=== PATIENT | female | born 1950 | race Caucasian/White ===

== ENCOUNTER 2018-05-19 14:24 | Emergency (ER) | payer MEDICARE, BC ==
[2018-05-19 14:55] VITALS: BP 156/76
[2018-05-19] MEDS ORDERED: Triamcinolone Acetonide 40 MG/ML 1 ML MDV INJECT PRN (16:18)
[2018-05-19] MEDS ORDERED: Bupivacaine 0.5% 30 ML SDV INJECT ONE (16:23)
--- NOTE | 2018-05-19 16:56 | EDM.PDOC ---
ED HPI GENERAL MEDICAL PROBLEM - General Chief Complaint: Lower Extremity Injury/Pain Stated Complaint: RIGHT HIP PAIN Time Seen by Provider: 05/19/18 15:00 Source of Information: Reports: Patient, Family History Limitations: Reports: No Limitations - History of Present Illness INITIAL COMMENTS - FREE TEXT/NARRATIVE: 67-year-old female with right hip pain worsening over the past several days now radiating into the right posterior buttock and into the right lateral thigh. No injury, sudden movements, recent illnesses, or other source of pain. She is having difficulty walking, standing, sleeping or even rolling over. She has not had this problem in the past. 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: Musculoskeletal History: Reports: Arthritis, Fracture Other Musculoskeletal History: fx ankle fibula - Infectious Disease History Infectious Disease History: Reports: Chicken Pox, Measles, Mumps - Past Surgical History GI Surgical History: Reports: Cholecystectomy Social & Family History - Tobacco Use Smoking Status *Q: Never Smoker Second Hand Smoke Exposure: No - Caffeine Use Caffeine Use: Reports: Coffee - Alcohol Use Days Per Week of Alcohol Use: 0 - Recreational Drug Use Recreational Drug Use: No Review of Systems - Review of Systems Review Of Systems: See Below Constitutional: Denies: Fever Respiratory: Reports: No Symptoms Cardiovascular: Reports: No Symptoms GI/Abdominal: Reports: No Symptoms Skin: Reports: No Symptoms. Denies: Rash (No rash over the sore area) Neurological: Denies: Paresthesia Psychiatric: Reports: No Symptoms ED EXAM, GENERAL - Physical Exam Exam: See Below Exam Limited By: No Limitations General Appearance: Alert, No Apparent Distress, Anxious, Other (Patient is uncomfortable but not distressed) Head: Atraumatic Respiratory/Chest: No Respiratory Distress Extremities: Other (Buttock and lateral hip were very painful to even passive range of motion. On palpation she was exquisitely sore over the greater trochanteric area.) Neurological: Alert, Oriented Course - Vital Signs Last Recorded V/S: Last Vital Signs Temp 97.9 F 05/19/18 15:29 Pulse 86 05/19/18 15:29 Resp 16 05/19/18 15:29 BP 156/76 H 05/19/18 15:29 Pulse Ox 95 05/19/18 15:29 - Orders/Labs/Meds Meds: Medications Discontinued Medications Generic Name Dose Route Start Last Admin Trade Name Prashanth PRN Reason Stop Dose Admin Bupivacaine HCl 10 ml 05/19/18 16:23 05/19/18 16:47 Marcaine 0.5% INJECT 05/19/18 16:24 10 ml ONETIME ONE Administration Triamcinolone Acetonide 40 mg 05/19/18 16:18 05/19/18 16:47 Kenalog-40 INJECT 40 mg ASDIRECTED PRN Administration Pain - Re-Assessments/Exams Free Text/Narrative Re-Assessment/Exam: 05/19/18 17:30 Under sterile conditions, 40 mg of Kenalog along with 10 mL of 0.5% Marcaine were infiltrated into the bursa and on a fan distribution around the greater trochanter. This was massaged in with a 4 x 4, and pain was markedly improved. She was able to stand with minimal discomfort but still had some pain with active extension and flexion of the hip. She was also placed on 50 mg of prednisone for the next 3-6 days to be taken with her first meal of the day. Recheck early next week if not improving satisfactorily. Departure - Departure Time of Disposition: 17:06 Disposition: Home, Self-Care 01 Condition: Good Clinical Impression: Trochanteric bursitis of right hip - Discharge Information Instructions: Hip Bursitis Referrals: PCP,None [Primary Care Provider] - Forms: ED Department Discharge Care Plan Goals: Take 5 pills of prednisone with your first meal of the day for the next 3-6 days. Tylenol and ibuprofen will help as well, increase your activity as tolerated. Consider rechecking next week if not improving satisfactorily.
== END 2018-05-19 17:06 | disposition home or self-care (01) ==
LOC: JP.ED 14:24
DX: M70.61 Trochanteric bursitis, right hip (principal); I10 Essential (primary) hypertension; Z79.899 Other long term (current) drug therapy
CPT/HCPCS: 20610; 99283; J3301

== ENCOUNTER 2018-07-14 06:23 | Inpatient (IN) | payer MEDICARE, BC ==
[2018-07-14] MEDS ORDERED: Morphine 4 MG/ML Syringe IVPUSH PRN (06:54)
[2018-07-14] MEDS ORDERED: Nitroglycerin 0.4 MG Tab.SL SL PRN (06:54)
[2018-07-14] MEDS ORDERED: Sodium Chloride 0.9% 10 ML Syringe FLUSH PRN ×2 (06:54→10:11)
--- NOTE | 2018-07-14 07:00 | EDM.PDOC ---
<OfficerSudarshan - Last Filed: 07/14/18 06:56> ED HPI GENERAL MEDICAL PROBLEM - General Chief Complaint: General Stated Complaint: NEO HAD HIP REPLACEMENT LAST WEEK Time Seen by Provider: 07/14/18 06:49 Source of Information: Reports: Patient, Family, RN Notes Reviewed History Limitations: Reports: No Limitations - History of Present Illness INITIAL COMMENTS - FREE TEXT/NARRATIVE: 67-year-old female presents to the emergency department today complaint of chest pain she recently underwent right hip replacement at was discharged last week has been doing well only taking tramadol and Tylenol for pain control. Awoke this morning with nausea and hip pain was diaphoretic did feel short of breath EMS services were called was given Zofran IM in route upon arrival at the emergency department developed chest pain with numbness and tingling down the left arm was given 4 [address]. At this time she continues to complain of chest pain, shortness of breath, nausea Right Hip Pain Score (Numeric/FACES): 8 Abdominal Pain Score (Numeric/FACES): 6 Chest Pain Score (Numeric/FACES): 4 - Related Data Allergies Allergy/AdvReac Type Severity Reaction Status Date / Time No Known Allergies Allergy Verified 07/14/18 06:37 Home Meds: Home Meds Lisinopril/Hydrochlorothiazide [Lisinopril-Hctz 10-12.5 mg Tab] 1 tab PO DAILY 06/07/16 [History] Acetaminophen [Tylenol Extra Strength] 500 mg PO Q4HR PRN 07/14/18 [History] Apixaban [Eliquis] 2.5 mg PO BID 07/14/18 [History] traMADol HCl [Tramadol HCl] 50 mg PO Q6H PRN 07/14/18 [History] Past Medical History HEENT History: Reports: Impaired Vision 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: Musculoskeletal History: Reports: Arthritis, Fracture Other Musculoskeletal History: fx ankle fibula Hematologic History: Reports: Anticoagulation Therapy - Infectious Disease History Infectious Disease History: Reports: Chicken Pox, Measles, Mumps - Past Surgical History GI Surgical History: Reports: Cholecystectomy Female Surgical History: Reports: Tubal Ligation Musculoskeletal Surgical History: Reports: Hip Replacement Social & Family History - Tobacco Use Smoking Status *Q: Never Smoker - Caffeine Use Caffeine Use: Reports: Coffee - Recreational Drug Use Recreational Drug Use: No ED ROS GENERAL - Review of Systems Review Of Systems: See Below Constitutional: Reports: No Symptoms HEENT: Reports: No Symptoms Respiratory: Reports: Shortness of Breath Cardiovascular: Reports: Chest Pain GI/Abdominal: Reports: Nausea. Denies: Vomiting : Reports: No Symptoms Musculoskeletal: Reports: Arm Pain (Left arm) Skin: Reports: No Symptoms Neurological: Reports: Numbness (Left arm) ED EXAM, GENERAL - Physical Exam Exam: See Below Exam Limited By: No Limitations General Appearance: Alert, Mild Distress Head: Atraumatic, Normocephalic Neck: Normal Inspection, Supple, Non-Tender, Full Range of Motion Respiratory/Chest: No Respiratory Distress, Lungs Clear, Normal Breath Sounds, No Accessory Muscle Use, Chest Non-Tender Cardiovascular: Regular Rate, Rhythm, No Murmur GI/Abdominal: Soft, Non-Tender Extremities: Non-Tender, No Pedal Edema Neurological: Alert, Oriented Course - Vital Signs Last Recorded V/S: Last Vital Signs Temp 36.4 C 07/14/18 06:40 Pulse 63 07/14/18 06:40 Resp 18 07/14/18 06:40 BP 156/57 H 07/14/18 06:40 Pulse Ox 99 07/14/18 06:40 - Orders/Labs/Meds Orders: Active Orders 24 hr Category Date Time Status Cardiac Monitoring [RC] .As Directed Care 07/14/18 06:54 Active EKG Documentation Completion [RC] ASDIRECTED Care 07/14/18 06:55 Active Peripheral IV Care [RC] . DIRECTED Care 07/14/18 06:55 Active Morphine Med 07/14/18 06:54 Active 4 mg IVPUSH Q10M PRN Nitroglycerin [Nitrostat] Med 07/14/18 06:54 Active 0.4 mg SL Q5M PRN Sodium Chloride 0.9% [Saline Flush] Med 07/14/18 06:54 Active 10 ml FLUSH ASDIRECTED PRN Peripheral IV Insertion Adult [OM.PC] Stat Oth 07/14/18 06:54 Ordered Saline Lock Insert [OM.PC] Stat Oth 07/14/18 06:54 Ordered EKG 12 Lead [EK] Stat Ther 07/14/18 06:55 Ordered Medication Orders Morphine Sulfate (Morphine) 4 mg IVPUSH Q10M PRN PRN Reason: Chest Pain Stop: 07/15/18 06:55 Last Admin: 07/14/18 07:02 Dose: 4 mg Nitroglycerin (Nitrostat) 0.4 mg SL Q5M PRN PRN Reason: Chest Pain Stop: 07/15/18 06:55 Sodium Chloride (Saline Flush) 10 ml FLUSH ASDIRECTED PRN PRN Reason: Keep Vein Open Last Admin: 07/14/18 07:13 Dose: 10 ml Labs: Laboratory Tests 07/14/18 07/14/18 07/14/18 Range/Units 07:07 07:07 07:07 WBC 6.6 (4.5-11.0) K/uL RBC 3.63 (3.30-5.50) M/uL Hgb 11.9 L (12.0-15.0) g/dL Hct 34.2 L (36.0-48.0) % MCV 94 (80-98) fL MCH 33 H (27-31) pg MCHC 35 (32-36) % Plt Count 272 (150-400) K/uL Neut % (Auto) 76 H (36-66) % Lymph % (Auto) 14 L (24-44) % Swift % (Auto) 10 H (2-6) % Eos % (Auto) 1 L (2-4) % Baso % (Auto) 1 (0-1) % PT 10.4 (9.5-12.0) sec INR 0.94 (0.80-1.20) D-Dimer, Quantitative (0.0-400.0) ng/mL Sodium 133 L (140-148) mmol/L Potassium 3.2 L (3.6-5.2) mmol/L Chloride 95 L (100-108) mmol/L Carbon Dioxide 30 (21-32) mmol/L Anion Gap 11.2 (5.0-14.0) mmol/L BUN 8 (7-18) mg/dL Creatinine 0.8 (0.6-1.0) mg/dL Est Cr Clr Drug Dosing 67.27 mL/min Estimated GFR (MDRD) > 60 (>60) Glucose 126 H (74-106) mg/dL Calcium 8.8 (8.5-10.1) mg/dL Total Bilirubin 0.8 (0.2-1.0) mg/dL AST 38 H (15-37) U/L ALT 29 (12-78) U/L Alkaline Phosphatase 50 (46-116) U/L CK-MB (CK-2) 2.1 (0-3.6) mg/mL Troponin I < 0.017 (0.000-0.056) ng/mL C-Reactive Protein (0.0-0.3) mg/dL Total Protein 6.2 L (6.4-8.2) g/dL Albumin 2.9 L (3.4-5.0) g/dL Globulin 3.3 (2.3-3.5) g/dL Albumin/Globulin Ratio 0.9 L (1.2-2.2) 07/14/18 07/14/18 Range/Units 07:12 07:18 WBC (4.5-11.0) K/uL RBC (3.30-5.50) M/uL Hgb (12.0-15.0) g/dL Hct (36.0-48.0) % MCV (80-98) fL MCH (27-31) pg MCHC (32-36) % Plt Count (150-400) K/uL Neut % (Auto) (36-66) % Lymph % (Auto) (24-44) % Swift % (Auto) (2-6) % Eos % (Auto) (2-4) % Baso % (Auto) (0-1) % PT (9.5-12.0) sec INR (0.80-1.20) D-Dimer, Quantitative 1820 H (0.0-400.0) ng/mL Sodium (140-148) mmol/L Potassium (3.6-5.2) mmol/L Chloride (100-108) mmol/L Carbon Dioxide (21-32) mmol/L Anion Gap (5.0-14.0) mmol/L BUN (7-18) mg/dL Creatinine (0.6-1.0) mg/dL Est Cr Clr Drug Dosing mL/min Estimated GFR (MDRD) (>60) Glucose (74-106) mg/dL Calcium (8.5-10.1) mg/dL Total Bilirubin (0.2-1.0) mg/dL AST (15-37) U/L ALT (12-78) U/L Alkaline Phosphatase (46-116) U/L CK-MB (CK-2) (0-3.6) mg/mL Troponin I (0.000-0.056) ng/mL C-Reactive Protein 7.85 H (0.0-0.3) mg/dL Total Protein (6.4-8.2) g/dL Albumin (3.4-5.0) g/dL Globulin (2.3-3.5) g/dL Albumin/Globulin Ratio (1.2-2.2) Meds: Medications Generic Name Dose Route Start Last Admin Trade Name Freq PRN Reason Stop Dose Admin Morphine Sulfate 4 mg 07/14/18 06:54 07/14/18 07:02 Morphine IVPUSH 07/15/18 06:55 4 mg Q10M PRN Administration Chest Pain Nitroglycerin 0.4 mg 07/14/18 06:54 Nitrostat SL 07/15/18 06:55 Q5M PRN Chest Pain Sodium Chloride 10 ml 07/14/18 06:54 07/14/18 07:13 Saline Flush FLUSH 10 ml ASDIRECTED PRN Administration Keep Vein Open Discontinued Medications Generic Name Dose Route Start Last Admin Trade Name Freq PRN Reason Stop Dose Admin Ondansetron HCl 4 mg 07/14/18 07:11 07/14/18 07:12 Zofran IVPUSH 07/14/18 07:12 4 mg ONETIME ONE Administration Ondansetron HCl Confirm 07/14/18 07:11 07/14/18 07:19 Zofran Administered 07/14/18 07:12 Not Given Dose 4 mg .ROUTE .STK-MED ONE Potassium Chloride 40 meq 07/14/18 07:58 07/14/18 08:14 Potassium Chloride PO 07/14/18 07:59 40 meq ONETIME ONE Administration Departure - Departure Disposition: Admitted As Inpatient 67 Clinical Impression: Cellulitis of hip, right, Hypokalemia - Discharge Information Referrals: Isaura Boone PA-C [Primary Care Provider] - Forms: ED Department Discharge <Roland Zuñiga - Last Filed: 07/14/18 08:52> ED HPI GENERAL MEDICAL PROBLEM - History of Present Illness INITIAL COMMENTS - FREE TEXT/NARRATIVE: Is on Eliquis since her surgery. Missed last night's dose. Onset: Today Onset Date: 07/14/18 Onset Time: 06:00 Duration: Minutes: Location: Reports: Chest, Lower Extremity, Right Quality: Reports: Pressure Severity: Moderate Improves with: Reports: None Worsens with: Reports: Other (unknown) Context: Reports: Other (Recent hip replacement) Associated Symptoms: Reports: Chest Pain (L sided), Nausea/Vomiting (no vomiting ), Shortness of Breath. 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 No: CVA Tenderness (R), CVA Tenderness (L) Extremities: Increased Warmth, Redness (R hip area, surgical wound present from recent hip replacement.) Neurological: CN II-XII Intact, Normal Cognition, No Motor/Sensory Deficits Psychiatric: Normal Affect, Normal Mood Skin Exam: Warm, Dry, Intact, No Rash, Erythema (R hip area with increased warmth.), Increased Warmth (R hip area), Wound/Incision (surgical wound) Lymphatic: No Adenopathy EKG INTERPRETATION EKG Date: 07/14/18 Time: 06:25 Rhythm: NSR Rate (Beats/Min): 62 [place]: Normal P-Wave: Present QRS: Normal ST-T: Normal QT: Normal Comparison: NA - No Prior EKG Course - Vital Signs Text/Narrative:: Dr. Ambriz notified @ [facility] - Orders/Labs/Meds Labs: Laboratory Tests 07/14/18 07/14/18 07/14/18 Range/Units 07:07 07:07 07:07 WBC 6.6 (4.5-11.0) K/uL RBC 3.63 (3.30-5.50) M/uL Hgb 11.9 L (12.0-15.0) g/dL Hct 34.2 L (36.0-48.0) % MCV 94 (80-98) fL MCH 33 H (27-31) pg MCHC 35 (32-36) % Plt Count 272 (150-400) K/uL Neut % (Auto) 76 H (36-66) % Lymph % (Auto) 14 L (24-44) % Swift % (Auto) 10 H (2-6) % Eos % (Auto) 1 L (2-4) % Baso % (Auto) 1 (0-1) % PT 10.4 (9.5-12.0) sec INR 0.94 (0.80-1.20) D-Dimer, Quantitative (0.0-400.0) ng/mL Sodium 133 L (140-148) mmol/L Potassium 3.2 L (3.6-5.2) mmol/L Chloride 95 L (100-108) mmol/L Carbon Dioxide 30 (21-32) mmol/L Anion Gap 11.2 (5.0-14.0) mmol/L BUN 8 (7-18) mg/dL Creatinine 0.8 (0.6-1.0) mg/dL Est Cr Clr Drug Dosing 67.27 mL/min Estimated GFR (MDRD) > 60 (>60) Glucose 126 H (74-106) mg/dL Calcium 8.8 (8.5-10.1) mg/dL Total Bilirubin 0.8 (0.2-1.0) mg/dL AST 38 H (15-37) U/L ALT 29 (12-78) U/L Alkaline Phosphatase 50 (46-116) U/L CK-MB (CK-2) 2.1 (0-3.6) mg/mL Troponin I < 0.017 (0.000-0.056) ng/mL C-Reactive Protein (0.0-0.3) mg/dL Total Protein 6.2 L (6.4-8.2) g/dL Albumin 2.9 L (3.4-5.0) g/dL Globulin 3.3 (2.3-3.5) g/dL Albumin/Globulin Ratio 0.9 L (1.2-2.2) 07/14/18 07/14/18 Range/Units 07:12 07:18 WBC (4.5-11.0) K/uL RBC (3.30-5.50) M/uL Hgb (12.0-15.0) g/dL Hct (36.0-48.0) % MCV (80-98) fL MCH (27-31) pg MCHC (32-36) % Plt Count (150-400) K/uL Neut % (Auto) (36-66) % Lymph % (Auto) (24-44) % Swift % (Auto) (2-6) % Eos % (Auto) (2-4) % Baso % (Auto) (0-1) % PT (9.5-12.0) sec INR (0.80-1.20) D-Dimer, Quantitative 1820 H (0.0-400.0) ng/mL Sodium (140-148) mmol/L Potassium (3.6-5.2) mmol/L Chloride (100-108) mmol/L Carbon Dioxide (21-32) mmol/L Anion Gap (5.0-14.0) mmol/L BUN (7-18) mg/dL Creatinine (0.6-1.0) mg/dL Est Cr Clr Drug Dosing mL/min Estimated GFR (MDRD) (>60) Glucose (74-106) mg/dL Calcium (8.5-10.1) mg/dL Total Bilirubin (0.2-1.0) mg/dL AST (15-37) U/L ALT (12-78) U/L Alkaline Phosphatase (46-116) U/L CK-MB (CK-2) (0-3.6) mg/mL Troponin I (0.000-0.056) ng/mL C-Reactive Protein 7.85 H (0.0-0.3) mg/dL Total Protein (6.4-8.2) g/dL Albumin (3.4-5.0) g/dL Globulin (2.3-3.5) g/dL Albumin/Globulin Ratio (1.2-2.2) - Radiology Interpretation Free Text/Narrative:: CXR-negative Abd flat-stool ascending colon, small stool descending colon. Departure - Departure Time of Disposition: 09:00 Condition: Fair - Discharge Information *PRESCRIPTION DRUG MONITORING PROGRAM REVIEWED*: Not Applicable *COPY OF PRESCRIPTION DRUG MONITORING REPORT IN PATIENT SHANE: Not Applicable
[2018-07-14] MEDS ORDERED: Ondansetron 4 MG/2 ML SDV IVPUSH ONE (07:11)
[2018-07-14] MEDS ORDERED: Ondansetron 4 MG/2 ML SDV ONE (07:11)
[2018-07-14] MEDS ORDERED: Potassium Chloride 10 MEQ Cap.ER PO ONE (07:58)
--- NOTE | 2018-07-14 08:46 | CR ---
CHEST: Portable CLINICAL HISTORY:Abdominal pain COMPARISON:None FINDINGS: Right size and pulmonary vascularity are normal. Lung carreno are clear. No infiltrate effu stefanie or pneumothorax seen. There is some scarring in the left upper lobe IMPRESSION: No acute cardiopulmonary process
--- NOTE | 2018-07-14 08:47 | CR ---
Abdomen 1V Flat CLINICAL HISTORY: Abdominal pain FINDINGS: The bowel gas pattern is nonobstructive. No abnormal masses are noted. There are surgical c lips in the right upper quadrant. IMPRESSION: Nonacute intestinal gas pattern
[2018-07-14] MEDS ORDERED: Metoclopramide 10 MG/2 ML SDV IVPUSH ONE (09:07)
[2018-07-14] MEDS ORDERED: Lactated Ringers 1,000 ML IV SCH (09:45)
[2018-07-14] MEDS: Vancomycin 1.3 GM in Sodium Chloride 0.9% 250 ML IV SCH ×2 (09:56→21:22)
[2018-07-14] MEDS ORDERED: Vancomycin 1 GM SDV IV SCH (10:00)
[2018-07-14] MEDS ORDERED: Morphine 2 MG/ML Syringe IVPUSH PRN (10:11)
[2018-07-14] MEDS ORDERED: Magnesium Hydroxide 400 MG/5 ML Susp 30 ML Cup PO PRN (10:11)
[2018-07-14] MEDS ORDERED: Polyethylene Glycol 3350 Powder 17 GM Packet PO PRN (10:11)
[2018-07-14] MEDS ORDERED: traMADol 50 MG Tab PO PRN (10:11)
[2018-07-14] MEDS ORDERED: Albuterol 0.083% 2.5 MG/3 ML Neb Soln NEB PRN (10:11)
--- NOTE | 2018-07-14 10:13 | PCM.HP ---
H&P History of Present Illness - General Date of Service: 07/14/18 Admit Problem/Dx: Admission Diagnosis/Problem Admission Diagnosis/Problem Cellulitis Source of Information: Patient, Family, Provider, RN Notes Reviewed History Limitations: Reports: No Limitations - History of Present Illness Initial Comments - Free Text/Narative: Ms. Huggins is a 67-year-old woman who is admitted through the emergency department with new onset of weakness and nausea, secondary to cellulitis of the right hip and thigh. She is status post right total hip arthroplasty done on July 09. She was discharged home the following day and did well until early this morning, when she noted development of erythema surrounding the surgical wound associated with significant weakness and nausea. She came into the emergency department for further evaluation, white blood cell count is within normal range, CRP is elevated, and there is appearance of significant cellulitis involving the right thigh and lateral hip. She was seen and evaluated in the emergency department by Dr. Kenny Cui for orthopedic consult, he did not feel that the wound was infected or that there was evidence of a deeper seeded infection. He is recommended hospitalization for IV antibiotic therapy. To this point there is no evidence of associated sepsis. Right Hip Pain Score (Numeric/FACES): 8 Abdominal Pain Score (Numeric/FACES): 6 Chest Pain Score (Numeric/FACES): 4 - Related Data Allergies/Adverse Reactions: Allergies Allergy/AdvReac Type Severity Reaction Status Date / Time No Known Allergies Allergy Verified 07/14/18 06:37 Home Medications: Home Meds Lisinopril/Hydrochlorothiazide [Lisinopril-Hctz 10-12.5 mg Tab] 1 tab PO DAILY 06/07/16 [History] Acetaminophen [Tylenol Extra Strength] 500 mg PO Q4HR PRN 07/14/18 [History] Apixaban [Eliquis] 2.5 mg PO BID 07/14/18 [History] traMADol HCl [Tramadol HCl] 50 mg PO Q6H PRN 07/14/18 [History] Past Medical History HEENT History: Reports: Impaired Vision Cardiovascular History: Reports: Hypertension [employer] History: Reports: Musculoskeletal History: Reports: Arthritis, Fracture Other Musculoskeletal History: fx ankle fibula Hematologic History: Reports: Anticoagulation Therapy - Infectious Disease History Infectious Disease History: Reports: Chicken Pox, Measles, Mumps - Past Surgical History GI Surgical History: Reports: Cholecystectomy Female Surgical History: Reports: Tubal Ligation Musculoskeletal Surgical History: Reports: Hip Replacement Social & Family History - Tobacco Use Smoking Status *Q: Never Smoker - Caffeine Use Caffeine Use: Reports: Coffee - Recreational Drug Use Recreational Drug Use: No H&P Review of Systems - Review of Systems: Review Of Systems: See Below General: Reports: Chills, Weakness, Diaphoresis, Decreased Appetite HEENT: Reports: No Symptoms Pulmonary: Reports: No Symptoms Cardiovascular: Reports: No Symptoms Gastrointestinal: Reports: Anorexia, Nausea. Denies: Abdominal Pain, Black Stool, Bloody Stool, Diarrhea, Difficulty Swallowing, Distension, Vomiting Genitourinary: Reports: No Symptoms Musculoskeletal: Reports: No Symptoms Skin: Reports: Erythema (With tenderness right lateral hip and thigh) Psychiatric: Reports: No Symptoms Neurological: Reports: No Symptoms Hematologic/Lymphatic: Reports: No Symptoms Immunologic: Reports: No Symptoms Exam - Exam Exam: See Below - Vital Signs Vital Signs: Last Vital Signs Temp 97.6 F 07/14/18 06:40 Pulse 63 07/14/18 06:40 Resp 18 07/14/18 06:40 BP 156/57 H 07/14/18 06:40 Pulse Ox 99 07/14/18 06:40 Weight: 190 lb - Exam Quality Assessment: DVT Prophylaxis General: Alert, Oriented, Cooperative, Moderate Distress HEENT: Conjunctiva Clear, Hearing Intact, Mucosa Moist & [place], Normal Nasal Septum, Posterior Pharynx Clear, Pupils Equal Neck: Supple, Trachea Midline, +2 Carotid Pulse wo Bruit Lungs: Clear to Auscultation, Normal Respiratory Effort Cardiovascular: Regular Rate, Regular Rhythm, Normal S1, Normal S2. No: Systolic Murmur, Diastolic Murmur GI/Abdominal Exam: Soft, Non-Tender, No Organomegaly, No Distention Back Exam: Normal Inspection, Full Range of Motion Extremities: Non-Tender, No Pedal Edema Skin: Other (Erythema with tenderness to palpation right lateral hip and thigh, surgical wound is intact with no evidence of drainage) Neurological: Cranial Nerves Intact, Strength Equal Bilateral, Normal Speech, Normal Tone, Sensation Intact. No: Focal Deficit Neuro Extensive - Mental Status: Alert, Oriented x3, Normal Mood/Affect, Normal Cognition, Memory Intact - Patient Data Lab Results Last 24 hrs: Laboratory Results - last 24 hr 07/14/18 07/14/18 07/14/18 Range/Units 07:07 07:07 07:07 WBC 6.6 (4.5-11.0) K/uL RBC 3.63 (3.30-5.50) M/uL Hgb 11.9 L (12.0-15.0) g/dL Hct 34.2 L (36.0-48.0) % MCV 94 (80-98) fL MCH 33 H (27-31) pg MCHC 35 (32-36) % Plt Count 272 (150-400) K/uL Neut % (Auto) 76 H (36-66) % Lymph % (Auto) 14 L (24-44) % [place] % (Auto) 10 H (2-6) % Eos % (Auto) 1 L (2-4) % Baso % (Auto) 1 (0-1) % PT 10.4 (9.5-12.0) sec INR 0.94 (0.80-1.20) D-Dimer, Quantitative (0.0-400.0) ng/mL Sodium 133 L (140-148) mmol/L Potassium 3.2 L (3.6-5.2) mmol/L Chloride 95 L (100-108) mmol/L Carbon Dioxide 30 (21-32) mmol/L Anion Gap 11.2 (5.0-14.0) mmol/L BUN 8 (7-18) mg/dL Creatinine 0.8 (0.6-1.0) mg/dL Est Cr Clr Drug Dosing 67.27 mL/min Estimated GFR (MDRD) > 60 (>60) Glucose 126 H (74-106) mg/dL Lactic Acid (0.4-2.0) mmol/L Calcium 8.8 (8.5-10.1) mg/dL Total Bilirubin 0.8 (0.2-1.0) mg/dL AST 38 H (15-37) U/L ALT 29 (12-78) U/L Alkaline Phosphatase 50 (46-116) U/L CK-MB (CK-2) 2.1 (0-3.6) mg/mL Troponin I < 0.017 (0.000-0.056) ng/mL C-Reactive Protein (0.0-0.3) mg/dL Total Protein 6.2 L (6.4-8.2) g/dL Albumin 2.9 L (3.4-5.0) g/dL Globulin 3.3 (2.3-3.5) g/dL Albumin/Globulin Ratio 0.9 L (1.2-2.2) 07/14/18 07/14/18 07/14/18 Range/Units 07:12 07:18 09:38 WBC (4.5-11.0) K/uL RBC (3.30-5.50) M/uL Hgb (12.0-15.0) g/dL Hct (36.0-48.0) % MCV (80-98) fL MCH (27-31) pg MCHC (32-36) % Plt Count (150-400) K/uL Neut % (Auto) (36-66) % Lymph % (Auto) (24-44) % [place] % (Auto) (2-6) % Eos % (Auto) (2-4) % Baso % (Auto) (0-1) % PT (9.5-12.0) sec INR (0.80-1.20) D-Dimer, Quantitative 1820 H (0.0-400.0) ng/mL Sodium (140-148) mmol/L Potassium (3.6-5.2) mmol/L Chloride (100-108) mmol/L Carbon Dioxide (21-32) mmol/L Anion Gap (5.0-14.0) mmol/L BUN (7-18) mg/dL Creatinine (0.6-1.0) mg/dL Est Cr Clr Drug Dosing mL/min Estimated GFR (MDRD) (>60) Glucose (74-106) mg/dL Lactic Acid 1.9 (0.4-2.0) mmol/L Calcium (8.5-10.1) mg/dL Total Bilirubin (0.2-1.0) mg/dL AST (15-37) U/L ALT (12-78) U/L Alkaline Phosphatase (46-116) U/L CK-MB (CK-2) (0-3.6) mg/mL Troponin I (0.000-0.056) ng/mL C-Reactive Protein 7.85 H (0.0-0.3) mg/dL Total Protein (6.4-8.2) g/dL Albumin (3.4-5.0) g/dL Globulin (2.3-3.5) g/dL Albumin/Globulin Ratio (1.2-2.2) Result Diagrams: 07/14/18 07:07 07/14/18 07:07 *Q Meaningful Use (ADM) - VTE Risk Assess *Q Each Risk Factor Represents 1 Point: Obesity ( BMI > 25 kg/m2) Total Score 1 Point Risk Factors: 1 Each Risk Factor Represents 2 Points: Age 60 - 74 Years Total Score 2 Point Risk Factors: 2 Each Risk Factor Represents 3 Points: None Total Score 3 Point Risk Factors: 0 Each Risk Factor Represents 5 Points: Hip, Pelvis or Leg Fracture, Less than 1 month Total Score 5 Point Risk Factors: 5 Venous Thromboembolism Risk Factor Score *Q: 8 Problem List Initiated/Reviewed/Updated: Yes Orders Last 24hrs: Active Orders 24 hr Category Date Time Status Patient Status Manage Transfer [TRANSFER] Routine ADT 07/14/18 09:38 Active Cardiac Monitoring [RC] .As Directed Care 07/14/18 06:54 Active EKG Documentation Completion [RC] ASDIRECTED Care 07/14/18 06:55 Active Peripheral IV Care [RC] . DIRECTED Care 07/14/18 06:55 Active CULTURE BLOOD [BC] Stat Lab 07/14/18 09:48 Received CULTURE BLOOD [BC] Stat Lab 07/14/18 09:55 Received UA W/MICROSCOPIC [URIN] Stat Lab 07/14/18 09:08 Ordered Lactated Ringers [Ringers, Lactated] 1,000 ml Med 07/14/18 09:45 Active IV ASDIRECTED Meropenem [Merrem] 1 gm Med 07/14/18 09:45 Ordered Sodium Chloride 0.9% [Normal Saline] 100 ml IV Q8H Morphine Med 07/14/18 06:54 Active 4 mg IVPUSH Q10M PRN Nitroglycerin [Nitrostat] Med 07/14/18 06:54 Active 0.4 mg SL Q5M PRN Sodium Chloride 0.9% [Saline Flush] Med 07/14/18 06:54 Active 10 ml FLUSH ASDIRECTED PRN Vancomycin 1.3 gm Med 07/14/18 10:00 Active Sodium Chloride 0.9% [Normal Saline] 250 ml IV Q12H Blood Culture x2 Reflex Set [OM.PC] Urgent Oth 07/14/18 09:37 Ordered Peripheral IV Insertion Adult [OM.PC] Stat Oth 07/14/18 06:54 Ordered Saline Lock Insert [OM.PC] Stat Oth 07/14/18 06:54 Ordered Resuscitation Status Routine Resus Stat 07/14/18 09:40 Ordered EKG 12 Lead [EK] Stat Ther 07/14/18 06:55 Ordered Medication Orders Lactated Ringer's (Ringers, Lactated) 1,000 mls @ 500 mls/hr IV ASDIRECTED TEO Stop: 07/14/18 13:46 Last Admin: 07/14/18 09:52 Dose: 500 mls/hr Meropenem 1 gm/ Sodium (Chloride) 100 mls @ 200 mls/hr IV Q8H TEO Vancomycin HCl 1.3 gm/ Sodium (Chloride) 250 mls @ 250 mls/hr IV Q12H TEO Last Admin: 07/14/18 09:56 Dose: 250 mls/hr Morphine Sulfate (Morphine) 4 mg IVPUSH Q10M PRN PRN Reason: Chest Pain Stop: 07/15/18 06:55 Last Admin: 07/14/18 07:02 Dose: 4 mg Nitroglycerin (Nitrostat) 0.4 mg SL Q5M PRN PRN Reason: Chest Pain Stop: 07/15/18 06:55 Sodium Chloride (Saline Flush) 10 ml FLUSH ASDIRECTED PRN PRN Reason: Keep Vein Open Last Admin: 07/14/18 07:13 Dose: 10 ml Assessment/Plan Comment:: ASSESSMENT AND PLAN CELLULITIS RIGHT LATERAL HIP AND THIGH-status post right total hip arthroplasty done 5 days ago. Wound is intact with no evidence of significant drainage and no current evidence of sepsis. -Blood cultures pending -IV fluids -Soft tissue ultrasound look for any evidence of abscess -IV vancomycin and meropenem pending culture results STATUS POST RIGHT TOTAL HIP ARTHROPLASTY -Physical therapy consult HYPERTENSION -Continue outpatient medications MAINTENANCE ISSUES -DVT prophylaxis; current therapy with Eliquis should provide adequate DVT prophylaxis -GI prophylaxis; not indicated -Lindo catheter; not indicated -Nutrition; regular diet -Nicotine dependence; not required CODE STATUS-FULL CODE ADMISSION STATUS-patient will be admitted to inpatient status, expect at least a 2 night hospital stay for evaluation and management of problems as outlined above. At the time of this admission I do not reasonably expected evaluation and management of this problem will require more than a 96 hour hospital stay. DISPOSITION-anticipate discharge to home after the hospital stay. PRIMARY CARE PROVIDER-Toña Boone
[2018-07-14] MEDS: Ondansetron 4 MG/2 ML SDV IV PRN ×3 (11:14→19:41)
[2018-07-14] MEDS: Meropenem 1 GM in Sodium Chloride 0.9% 100 ML IV SCH ×2 (12:33→19:37)
[2018-07-14] MEDS: Lactated Ringers 1,000 ML IV SCH ×2 (13:27→21:22)
--- NOTE | 2018-07-14 13:47 | US ---
Extremity Non Vascular Rt CLINICAL HISTORY: Cellulitis right lateral hip and thigh, recent hip surgery FINDINGS: There is some soft tissue edema around the incision site. No underlying fluid collections a re identified IMPRESSION: Redness and swelling near the incision site may represent cellulitis No evidence of abscess
[2018-07-14] MEDS: Apixaban 2.5 MG Tab PO SCH (20:11)
[2018-07-15] MEDS: Meropenem 1 GM in Sodium Chloride 0.9% 100 ML IV SCH ×3 (03:30→19:02)
[2018-07-15] MEDS: Ondansetron 4 MG/2 ML SDV IV PRN ×2 (03:37→09:26)
[2018-07-15] MEDS: Acetaminophen 325 MG Tab PO PRN ×5 (03:37→19:04)
[2018-07-15] MEDS: Lactated Ringers 1,000 ML IV SCH (06:18)
[2018-07-15] MEDS ORDERED: Magnesium Sulfate/Water 2 GM in Premix Bag 1 BAG IV ONE (09:00)
[2018-07-15] MEDS: Apixaban 2.5 MG Tab PO SCH ×2 (09:17→21:45)
[2018-07-15] MEDS: Lisinopril 10 MG Tab PO SCH (09:18)
[2018-07-15] MEDS: Magnesium Oxide 400 MG Tab PO SCH ×2 (09:18→21:43)
[2018-07-15] MEDS: Hydrochlorothiazide 12.5 MG Cap PO SCH (09:18)
[2018-07-15] MEDS: Vancomycin 1.3 GM in Sodium Chloride 0.9% 250 ML IV SCH ×2 (13:33→21:45)
--- NOTE | 2018-07-15 13:57 | PCM.PN ---
- General Info Date of Service: 07/15/18 Subjective Update: Ms. Huggins has been stable since admission yesterday with no significant temperature elevations and stable vital signs. Energy level and appetite have improved significantly and she is no longer experiencing significant nausea. Area of cellulitis has improved significantly from admission. - Review of Systems General: Denies: Fever, Weakness, Chills Pulmonary: Reports: No Symptoms Cardiovascular: Reports: No Symptoms Gastrointestinal: Reports: No Symptoms Skin: Reports: Other (Cellulitis significantly improved) - Patient Data Vitals - Most Recent: Last Vital Signs Temp 98.6 F 07/15/18 12:39 Pulse 65 07/15/18 12:39 Resp 16 07/15/18 12:39 BP 129/59 L 07/15/18 12:39 Pulse Ox 97 07/15/18 12:39 Weight - Most Recent: 196 lb 3.382 oz I&O - Last 24 Hours: Intake & Output 07/14/18 07/15/18 07/15/18 22:59 06:59 14:59 Intake Total 840 2996 1250 Output Total 700 700 325 Balance 140 2296 925 Lab Results Last 24 Hours: Laboratory Results - last 24 hr 07/15/18 07/15/18 Range/Units 05:00 05:00 WBC 5.2 (4.5-11.0) K/uL RBC 3.44 (3.30-5.50) M/uL Hgb 11.4 L (12.0-15.0) g/dL Hct 32.9 L (36.0-48.0) % MCV 96 (80-98) fL MCH 33 H (27-31) pg MCHC 35 (32-36) % Plt Count 267 (150-400) K/uL Add Manual Diff Yes Neutrophils % (Manual) 62 (36-66) % Band Neutrophils % 1 L (5-11) % Lymphocytes % (Manual) 20 L (24-44) % Monocytes % (Manual) 11 H (2-6) % Eosinophils % (Manual) 3 (2-4) % Metamyelocytes % 3 % Sodium 139 L (140-148) mmol/L Potassium 3.8 (3.6-5.2) mmol/L Chloride 104 (100-108) mmol/L Carbon Dioxide 27 (21-32) mmol/L Anion Gap 11.8 (5.0-14.0) mmol/L BUN 4 L (7-18) mg/dL Creatinine 0.8 (0.6-1.0) mg/dL Est Cr Clr Drug Dosing 67.27 mL/min Estimated GFR (MDRD) > 60 (>60) Glucose 100 (74-106) mg/dL Calcium 8.6 (8.5-10.1) mg/dL Magnesium 1.6 L (1.8-2.4) mg/dL Jovanny Results Last 24 Hours: Microbiology 07/14/18 09:55 Aerobic Blood Culture - Preliminary Blood - Venous - Lab Draw NO GROWTH AFTER 1 DAY Anaerobic Blood Culture - Preliminary NO GROWTH AFTER 1 DAY 07/14/18 09:48 Aerobic Blood Culture - Preliminary Blood - Arm, Left NO GROWTH AFTER 1 DAY Anaerobic Blood Culture - Preliminary NO GROWTH AFTER 1 DAY 07/14/18 15:27 Urine Culture - Preliminary Urine, Clean Catch Med Orders - Current: Current Medications Acetaminophen (Tylenol) 650 mg PO Q4H PRN PRN Reason: Pain (Mild 1-3)/fever Last Admin: 07/15/18 08:01 Dose: 325 mg Albuterol (Proventil Neb Soln) 2.5 mg NEB Q4H PRN PRN Reason: Shortness Of Breath/wheezing Apixaban (Eliquis) 2.5 mg PO BID [facility] Last Admin: 07/15/18 09:17 Dose: 2.5 mg Hydrochlorothiazide (Hydrochlorothiazide) 12.5 mg PO DAILY [facility] Last Admin: 07/15/18 09:18 Dose: 12.5 mg Meropenem 1 gm/ Sodium (Chloride) 100 mls @ 200 mls/hr IV Q8H [facility] Last Admin: 07/15/18 12:37 Dose: 200 mls/hr Vancomycin HCl 1.3 gm/ Sodium (Chloride) 250 mls @ 250 mls/hr IV Q12H [facility] Last Admin: 07/15/18 13:33 Dose: 250 mls/hr Lisinopril (Prinivil) 10 mg PO DAILY [facility] Last Admin: 07/15/18 09:18 Dose: 10 mg Magnesium Hydroxide (Milk Of Magnesia) 30 ml PO Q12H PRN PRN Reason: Constipation Magnesium Oxide (Magnesium Oxide) 400 mg PO BID [facility] Last Admin: 07/15/18 09:18 Dose: 400 mg Morphine Sulfate (Morphine) 2 mg IVPUSH Q2H PRN PRN Reason: Pain (severe 7-10) Ondansetron HCl (Zofran) 4 mg IV Q4H PRN PRN Reason: Nausea/Vomiting Last Admin: 07/15/18 09:26 Dose: 4 mg Polyethylene Glycol (Miralax) 17 gm PO DAILY PRN PRN Reason: Constipation Senna/Docusate Sodium (Senna Plus) 1 tab PO BID PRN PRN Reason: Constipation Sodium Chloride (Saline Flush) 10 ml FLUSH ASDIRECTED PRN PRN Reason: Keep Vein Open Tramadol HCl (Ultram) 50 mg PO Q6H PRN PRN Reason: Pain Discontinued Medications Lactated Ringer's (Ringers, Lactated) 1,000 mls @ 500 mls/hr IV ASDIRECTED [facility] Stop: 07/14/18 13:46 Last Admin: 07/14/18 09:52 Dose: 500 mls/hr Lactated Ringer's (Ringers, Lactated) 1,000 mls @ 125 mls/hr IV ASDIRECTED [facility] Last Admin: 07/15/18 06:18 Dose: 125 mls/hr Magnesium Sulfate 2 gm/ Premix 50 mls @ 25 mls/hr IV ONETIME ONE Stop: 07/15/18 10:59 Last Admin: 07/15/18 09:21 Dose: 25 mls/hr Metoclopramide HCl (Reglan) 5 mg IVPUSH ONETIME ONE Stop: 07/14/18 09:08 Last Admin: 07/14/18 09:12 Dose: 5 mg Morphine Sulfate (Morphine) 4 mg IVPUSH Q10M PRN PRN Reason: Chest Pain Stop: 07/15/18 06:55 Last Admin: 07/14/18 07:02 Dose: 4 mg Nitroglycerin (Nitrostat) 0.4 mg SL Q5M PRN PRN Reason: Chest Pain Stop: 07/15/18 06:55 Ondansetron HCl (Zofran) 4 mg IVPUSH ONETIME ONE Stop: 07/14/18 07:12 Last Admin: 07/14/18 07:12 Dose: 4 mg Ondansetron HCl (Zofran) Confirm Administered Dose 4 mg .ROUTE .STK-MED ONE Stop: 07/14/18 07:12 Last Admin: 07/14/18 07:19 Dose: Not Given Potassium Chloride (Potassium Chloride) 40 meq PO ONETIME ONE Stop: 07/14/18 07:59 Last Admin: 07/14/18 08:14 Dose: 40 meq Sodium Chloride (Saline Flush) 10 ml FLUSH ASDIRECTED PRN PRN Reason: Keep Vein Open Last Admin: 07/14/18 07:13 Dose: 10 ml - Exam Quality Assessment: DVT Prophylaxis General: Alert, Oriented, Cooperative, No Acute Distress Lungs: Clear to Auscultation, Normal Respiratory Effort Cardiovascular: Regular Rate, Regular Rhythm, No Murmurs GI/Abdominal Exam: Soft, Non-Tender, No Organomegaly, No Distention Extremities: Non-Tender, No Pedal Edema Skin: Other (Almost total resolution of cellulitis right lateral thigh and hip) - Problem List Review Problem List Initiated/Reviewed/Updated: Yes - My Orders Last 24 Hours: My Active Orders 07/14/18 15:27 CULTURE URINE [RM] Routine 07/14/18 21:00 Apixaban [Eliquis] 2.5 mg PO BID 07/15/18 09:00 Lisinopril [Prinivil] 10 mg PO DAILY Magnesium Oxide 400 mg PO BID hydroCHLOROthiazide 12.5 mg PO DAILY 07/15/18 13:53 Convert IV to Saline Lock [OM.PC] Routine 07/16/18 05:00 BASIC METABOLIC PANEL,BMP [CHEM] Timed MAGNESIUM [CHEM] Timed 07/16/18 09:30 VANCOMYCIN TROUGH [CHEM] Routine - Plan Plan:: ASSESSMENT AND PLAN CELLULITIS RIGHT LATERAL HIP AND THIGH-status post right total hip arthroplasty done 6 days ago. Wound is intact with no evidence of significant drainage and no current evidence of sepsis. Marked improvement of cellulitis over the past 24 hours with current management. Ultrasound showed no evidence of abscess or deeper tissue infection -Blood cultures pending -Saline lock IV -IV vancomycin and meropenem pending culture results STATUS POST RIGHT TOTAL HIP ARTHROPLASTY -Physical therapy consult HYPERTENSION -Continue outpatient medications MAINTENANCE ISSUES -DVT prophylaxis; current therapy with Eliquis should provide adequate DVT prophylaxis -GI prophylaxis; not indicated -Lindo catheter; not indicated -Nutrition; regular diet -Nicotine dependence; not required CODE STATUS-FULL CODE ADMISSION STATUS-patient will be admitted to inpatient status, expect at least a 2 night hospital stay for evaluation and management of problems as outlined above. At the time of this admission I do not reasonably expected evaluation and management of this problem will require more than a 96 hour hospital stay. DISPOSITION-anticipate discharge to home after the hospital stay. PRIMARY CARE PROVIDER-Toña Boone
[2018-07-15] MEDS ORDERED: diphenhydrAMINE 50 MG/ML SDV IVPUSH ONE (22:58)
[2018-07-15] MEDS ORDERED: diphenhydrAMINE 50 MG/ML SDV ONE (23:05)
--- NOTE | 2018-07-15 23:07 | PCM.SN ---
- Free Text/Narrative Note: time 22:50pm. Call from 2 N. nursing S: Concerns of feeling itchy, restless, she is on her second dose of vancomycin , which is nearly completed o; nursing staff reports no redness, rash, shortness of breath, or any respiratory involvement. Vital signs this evening temperature 36.7 pulse 85 respirations 18 blood pressure 149/54, O2 sat 98% on room air. a; concerns for medication adverse reaction p; will give Benadryl 25 mg IV then reassess.
[2018-07-16] MEDS: Meropenem 1 GM in Sodium Chloride 0.9% 100 ML IV SCH ×3 (03:29→20:58)
[2018-07-16] MEDS ORDERED: Potassium Chloride 20 MEQ Tab.ER PO ONE ×2 (09:00→17:00)
[2018-07-16] MEDS: Hydrochlorothiazide 12.5 MG Cap PO SCH (09:08)
[2018-07-16] MEDS: Magnesium Oxide 400 MG Tab PO SCH ×2 (09:08→21:41)
[2018-07-16] MEDS: Lisinopril 10 MG Tab PO SCH (09:08)
[2018-07-16] MEDS: Apixaban 2.5 MG Tab PO SCH ×2 (09:08→21:06)
[2018-07-16] MEDS ORDERED: LORazepam 2 MG/ML SDV IVPUSH PRN (10:03)
--- NOTE | 2018-07-16 10:06 | PCM.PN ---
- General Info Date of Service: 07/16/18 Subjective Update: This patient has done well since yesterday with no significant temperature elevation, vital signs have been stable. She did have possible panic attack yesterday evening versus drug reaction from the IV magnesium. Symptoms have resolved and not recurred since then. Functional Status: Reports: Pain Controlled, Tolerating Diet, Ambulating, Urinating - Review of Systems General: Denies: Fever, Weakness, Chills Pulmonary: Reports: No Symptoms Cardiovascular: Reports: No Symptoms Gastrointestinal: Reports: No Symptoms - Patient Data Vitals - Most Recent: Last Vital Signs Temp 97.7 F 07/16/18 07:29 Pulse 73 07/16/18 07:29 Resp 16 07/16/18 07:29 BP 146/64 H 07/16/18 09:08 Pulse Ox 98 07/16/18 07:29 Weight - Most Recent: 196 lb 3.382 oz I&O - Last 24 Hours: Intake & Output 07/15/18 07/16/18 07/16/18 22:59 06:59 14:59 Intake Total 1846 1118 1000 Output Total 700 Balance 0335 034 5607 Lab Results Last 24 Hours: Laboratory Results - last 24 hr 07/16/18 Range/Units 05:45 Sodium 139 L (140-148) mmol/L Potassium 3.5 L (3.6-5.2) mmol/L Chloride 105 (100-108) mmol/L Carbon Dioxide 27 (21-32) mmol/L Anion Gap 10.5 (5.0-14.0) mmol/L BUN 5 L (7-18) mg/dL Creatinine 0.8 (0.6-1.0) mg/dL Est Cr Clr Drug Dosing 67.27 mL/min Estimated GFR (MDRD) > 60 (>60) Glucose 91 (74-106) mg/dL Calcium 8.3 L (8.5-10.1) mg/dL Magnesium 1.8 (1.8-2.4) mg/dL Jovanny Results Last 24 Hours: Microbiology 07/14/18 09:55 Aerobic Blood Culture - Preliminary Blood - Venous - Lab Draw NO GROWTH AFTER 2 DAYS Anaerobic Blood Culture - Preliminary NO GROWTH AFTER 2 DAYS 07/14/18 09:48 Aerobic Blood Culture - Preliminary Blood - Arm, Left NO GROWTH AFTER 2 DAYS Anaerobic Blood Culture - Preliminary NO GROWTH AFTER 2 DAYS 07/14/18 15:27 Urine Culture - Final Urine, Clean Catch Klebsiella Pneumonia Ss Pneumo Med Orders - Current: Current Medications Acetaminophen (Tylenol) 650 mg PO Q4H PRN PRN Reason: Pain (Mild 1-3)/fever Last Admin: 07/15/18 19:04 Dose: 325 mg Albuterol (Proventil Neb Soln) 2.5 mg NEB Q4H PRN PRN Reason: Shortness Of Breath/wheezing Apixaban (Eliquis) 2.5 mg PO BID [facility] Last Admin: 07/16/18 09:08 Dose: 2.5 mg Hydrochlorothiazide (Hydrochlorothiazide) 12.5 mg PO DAILY [facility] Last Admin: 07/16/18 09:08 Dose: 12.5 mg Meropenem 1 gm/ Sodium (Chloride) 100 mls @ 200 mls/hr IV Q8H [facility] Last Admin: 07/16/18 03:29 Dose: 200 mls/hr Vancomycin HCl 1.3 gm/ Sodium (Chloride) 250 mls @ 250 mls/hr IV Q12H [facility] Last Admin: 07/15/18 21:45 Dose: 250 mls/hr Lisinopril (Prinivil) 10 mg PO DAILY [facility] Last Admin: 07/16/18 09:08 Dose: 10 mg Magnesium Hydroxide (Milk Of Magnesia) 30 ml PO Q12H PRN PRN Reason: Constipation Magnesium Oxide (Magnesium Oxide) 400 mg PO BID [facility] Last Admin: 07/16/18 09:08 Dose: Not Given Morphine Sulfate (Morphine) 2 mg IVPUSH Q2H PRN PRN Reason: Pain (severe 7-10) Ondansetron HCl (Zofran) 4 mg IV Q4H PRN PRN Reason: Nausea/Vomiting Last Admin: 07/15/18 09:26 Dose: 4 mg Polyethylene Glycol (Miralax) 17 gm PO DAILY PRN PRN Reason: Constipation Potassium Chloride (Klor-Con M20) 40 meq PO ONETIME ONE Stop: 07/16/18 17:01 Senna/Docusate Sodium (Senna Plus) 1 tab PO BID PRN PRN Reason: Constipation Sodium Chloride (Saline Flush) 10 ml FLUSH ASDIRECTED PRN PRN Reason: Keep Vein Open Tramadol HCl (Ultram) 50 mg PO Q6H PRN PRN Reason: Pain Discontinued Medications Diphenhydramine HCl (Benadryl) 25 mg IVPUSH ONETIME ONE Stop: 07/15/18 22:59 Last Admin: 07/15/18 23:09 Dose: 25 mg Diphenhydramine HCl (Benadryl) Confirm Administered Dose 50 mg .ROUTE .STK-MED ONE Stop: 07/15/18 23:06 Last Admin: 07/16/18 02:51 Dose: Not Given Lactated Ringer's (Ringers, Lactated) 1,000 mls @ 500 mls/hr IV ASDIRECTED [facility] Stop: 07/14/18 13:46 Last Admin: 07/14/18 09:52 Dose: 500 mls/hr Lactated Ringer's (Ringers, Lactated) 1,000 mls @ 125 mls/hr IV ASDIRECTED [facility] Last Admin: 07/15/18 06:18 Dose: 125 mls/hr Magnesium Sulfate 2 gm/ Premix 50 mls @ 25 mls/hr IV ONETIME ONE Stop: 07/15/18 10:59 Last Admin: 07/15/18 09:21 Dose: 25 mls/hr Metoclopramide HCl (Reglan) 5 mg IVPUSH ONETIME ONE Stop: 07/14/18 09:08 Last Admin: 07/14/18 09:12 Dose: 5 mg Morphine Sulfate (Morphine) 4 mg IVPUSH Q10M PRN PRN Reason: Chest Pain Stop: 07/15/18 06:55 Last Admin: 07/14/18 07:02 Dose: 4 mg Nitroglycerin (Nitrostat) 0.4 mg SL Q5M PRN PRN Reason: Chest Pain Stop: 07/15/18 06:55 Ondansetron HCl (Zofran) 4 mg IVPUSH ONETIME ONE Stop: 07/14/18 07:12 Last Admin: 07/14/18 07:12 Dose: 4 mg Ondansetron HCl (Zofran) Confirm Administered Dose 4 mg .ROUTE .STK-MED ONE Stop: 07/14/18 07:12 Last Admin: 07/14/18 07:19 Dose: Not Given Potassium Chloride (Potassium Chloride) 40 meq PO ONETIME ONE Stop: 07/14/18 07:59 Last Admin: 07/14/18 08:14 Dose: 40 meq Potassium Chloride (Klor-Con M20) 40 meq PO ONETIME ONE Stop: 07/16/18 09:01 Last Admin: 07/16/18 09:08 Dose: 40 meq Sodium Chloride (Saline Flush) 10 ml FLUSH ASDIRECTED PRN PRN Reason: Keep Vein Open Last Admin: 07/14/18 07:13 Dose: 10 ml - Exam Quality Assessment: DVT Prophylaxis General: Alert, Oriented, Cooperative, No Acute Distress Lungs: Clear to Auscultation, Normal Respiratory Effort Cardiovascular: Regular Rate, Regular Rhythm, No Murmurs GI/Abdominal Exam: Soft, Non-Tender, No Organomegaly, No Distention Skin: Other (Marked improvement and resolution of cellulitis left lateral thigh and hip) - Problem List Review Problem List Initiated/Reviewed/Updated: Yes - My Orders Last 24 Hours: My Active Orders 07/15/18 13:53 Convert IV to Saline Lock [OM.PC] Routine 07/16/18 09:39 VANCOMYCIN TROUGH [CHEM] Routine 07/16/18 10:03 LORazepam [Ativan] 0.5 mg IVPUSH Q4H PRN 07/16/18 17:00 Potassium Chloride [Klor-Con M20] 40 meq PO ONETIME ONE - Plan Plan:: ASSESSMENT AND PLAN CELLULITIS RIGHT LATERAL HIP AND THIGH-status post right total hip arthroplasty done 7 days ago. Wound is intact with no evidence of significant drainage and no current evidence of sepsis. Most total resolution of cellulitis since admission, blood cultures remain negative -Plan for transition to oral antibiotic therapy tomorrow with discharge to home -Saline lock IV -IV vancomycin and meropenem pending culture results STATUS POST RIGHT TOTAL HIP ARTHROPLASTY -Physical therapy consult HYPERTENSION -Continue outpatient medications MAINTENANCE ISSUES -DVT prophylaxis; current therapy with Eliquis should provide adequate DVT prophylaxis -GI prophylaxis; not indicated -Lindo catheter; not indicated -Nutrition; regular diet -Nicotine dependence; not required CODE STATUS-FULL CODE ADMISSION STATUS-patient will be admitted to inpatient status, expect at least a 2 night hospital stay for evaluation and management of problems as outlined above. At the time of this admission I do not reasonably expected evaluation and management of this problem will require more than a 96 hour hospital stay. DISPOSITION-anticipate discharge to home after the hospital stay. PRIMARY CARE PROVIDER-Toña Boone
[2018-07-16] MEDS: Acetaminophen 325 MG Tab PO PRN ×2 (10:54→21:06)
[2018-07-16] MEDS: Vancomycin 1.3 GM in Sodium Chloride 0.9% 250 ML IV SCH ×2 (10:56→21:41)
[2018-07-17] MEDS: Meropenem 1 GM in Sodium Chloride 0.9% 100 ML IV SCH (04:29)
[2018-07-17 04:37] VITALS: BP 157/72
[2018-07-17] MEDS: Apixaban 2.5 MG Tab PO SCH (09:15)
[2018-07-17] MEDS: Magnesium Oxide 400 MG Tab PO SCH (09:15)
[2018-07-17] MEDS: Hydrochlorothiazide 12.5 MG Cap PO SCH (09:15)
[2018-07-17] MEDS: Lisinopril 10 MG Tab PO SCH (09:16)
--- NOTE | 2018-07-17 09:29 | PCM.DCSUM1 ---
Discharge Summary - Hospital Course Brief History: Ms. Huggins is a 67-year-old woman who was admitted through the emergency department with fever and weakness secondary to cellulitis of her right lateral hip and thigh. - Discharge Data Discharge Date: 07/17/18 Discharge Disposition: Home, Self-Care 01 Condition: Fair - Discharge Diagnosis/Problem(s) (1) UTI due to Klebsiella species SNOMED Code(s): 044521520057858 ICD Code: N39.0 - URINARY TRACT INFECTION, SITE NOT SPECIFIED; B96.1 - KLEBSIELLA PNEUMONIAE THE CAUSE OF DISEASES CLASSD [id number] Status: Acute Current Visit: Yes (2) Cellulitis of hip, right SNOMED Code(s): 6452902 ICD Code: L03.115 - CELLULITIS OF RIGHT LOWER LIMB Status: Acute Current Visit: Yes - Patient Summary/Data Consults: Consultations 07/14/18 10:11 PT Evaluation and Treatment [CONS] Routine Please Evaluate and Treat. PT Reason for Consult: Status post right total hip arthroplasty This query below is only for informational purposes and is not editable. Hospital Course: Ms. Huggins is a 67-year-old woman who was admitted through the emergency department with new onset of weakness and nausea, secondary to cellulitis of the right hip and thigh. She is status post right total hip arthroplasty done on July 09. She was discharged home the following day and did well until early on the morning of admission, when she noted development of erythema surrounding the surgical wound associated with significant weakness and nausea. She came into the emergency department for further evaluation, white blood cell count is within normal range, CRP is elevated, and there is appearance of significant cellulitis involving the right thigh and lateral hip. She was seen and evaluated in the emergency department by Dr. Kenny Cui for orthopedic consult, he did not feel that the wound was infected or that there was evidence of a deeper seeded infection. He recommended hospitalization for IV antibiotic therapy. To this point there is no evidence of associated sepsis. Blood cultures were obtained prior to admission and she was started on broad- spectrum IV antibiotic therapy with vancomycin and meropenem because of recent hospitalization and surgery. She was given IV fluids for hydration and pain medication as needed. Ultrasound of the right hip and thigh was obtained which showed no evidence of abscess or deeper infection. She improved significantly over the next few days of hospitalization and by the time of discharge been total resolution of the cellulitis for a period of 24 hours. She was seen daily by physical therapy during hospitalization to work on mobility because of her recent right hip arthroplasty. Blood cultures returned as negative showing no growth. Urinalysis at the time of admission did show evidence of urinary tract infection, urine culture was obtained and did grow out Klebsiella. She will be discharged home on cephalexin 500 mg every 8 hours for an additional 5 days. Activity will be as tolerated and she will resume her usual diet. She already has follow-up appointment for orthopedics in 6 days and will be scheduled for follow-up appointment with primary care within 1 week. Also has been scheduled to begin outpatient physical therapy. - Patient Instructions Diet: Usual Diet as Tolerated Activity: As Tolerated Other/Special Instructions: Outpatient physical therapy as scheduled. Please schedule follow-up appointment with primary care provider within one week. Return immediately to the emergency room for any recurrent fever, skin redness, or increase in pain. - Discharge Plan *PRESCRIPTION DRUG MONITORING PROGRAM REVIEWED*: Not Applicable *COPY OF PRESCRIPTION DRUG MONITORING REPORT IN PATIENT SHANE: Not Applicable Prescriptions/Med Rec: Cephalexin [Keflex] 500 mg PO Q8H #15 capsule Home Medications: Home Meds Lisinopril/Hydrochlorothiazide [Lisinopril-Hctz 10-12.5 mg Tab] 1 tab PO DAILY 06/07/16 [History] Acetaminophen [Tylenol Extra Strength] 500 mg PO Q4HR PRN 07/14/18 [History] Apixaban [Eliquis] 2.5 mg PO BID 07/14/18 [History] traMADol HCl [Tramadol HCl] 50 mg PO Q6H PRN 07/14/18 [History] Loratadine 10 mg PO DAILY 07/15/18 [History] Cephalexin [Keflex] 500 mg PO Q8H #15 capsule 07/17/18 [Rx] Referrals: Melisa Singh PT [Physical Therapist] - 07/20/18 8:30 am Isaura Boone PA-C [Primary Care Provider] - - Discharge Summary/Plan Comment DC Time >30 min.: No - Patient Data Vitals - Most Recent: Last Vital Signs Temp 97.6 F 07/17/18 04:00 Pulse 75 07/17/18 04:00 Resp 18 07/17/18 04:00 BP 157/72 H 07/17/18 09:16 Pulse Ox 98 07/17/18 04:00 Weight - Most Recent: 196 lb 3.382 oz I&O - Last 24 hours: Intake & Output 07/16/18 07/17/18 07/17/18 22:59 06:59 14:59 Intake Total 1590 600 Output Total 600 Balance 1590 0 Lab Results - Last 24 hrs: Laboratory Results - last 24 hr 07/16/18 Range/Units 09:39 Vancomycin Trough 14.5 (10.0-20.0) ug/mL [facility] Results - Last 24 hrs: Microbiology 07/14/18 09:55 Aerobic Blood Culture - Preliminary Blood - Venous - Lab Draw NO GROWTH AFTER 2 DAYS Anaerobic Blood Culture - Preliminary NO GROWTH AFTER 2 DAYS 07/14/18 09:48 Aerobic Blood Culture - Preliminary Blood - Arm, Left NO GROWTH AFTER 2 DAYS Anaerobic Blood Culture - Preliminary NO GROWTH AFTER 2 DAYS 07/14/18 15:27 Urine Culture - Final Urine, Clean Catch Klebsiella Pneumonia Ss Pneumo Med Orders - Current: Current Medications Acetaminophen (Tylenol) 650 mg PO Q4H PRN PRN Reason: Pain (Mild 1-3)/fever Last Admin: 07/16/18 21:06 Dose: 325 mg Albuterol (Proventil Neb Soln) 2.5 mg NEB Q4H PRN PRN Reason: Shortness Of Breath/wheezing Apixaban (Eliquis) 2.5 mg PO BID [facility] Last Admin: 07/17/18 09:15 Dose: 2.5 mg Hydrochlorothiazide (Hydrochlorothiazide) 12.5 mg PO DAILY [facility] Last Admin: 07/17/18 09:15 Dose: 12.5 mg Meropenem 1 gm/ Sodium (Chloride) 100 mls @ 200 mls/hr IV Q8H [facility] Last Admin: 07/17/18 04:29 Dose: 200 mls/hr Vancomycin HCl 1.3 gm/ Sodium (Chloride) 250 mls @ 250 mls/hr IV Q12H [facility] Last Admin: 07/16/18 21:41 Dose: 250 mls/hr Lisinopril (Prinivil) 10 mg PO DAILY [facility] Last Admin: 07/17/18 09:16 Dose: 10 mg Lorazepam (Ativan) 0.5 mg IVPUSH Q4H PRN PRN Reason: Anxiety Magnesium Hydroxide (Milk Of Magnesia) 30 ml PO Q12H PRN PRN Reason: Constipation Magnesium Oxide (Magnesium Oxide) 400 mg PO BID [facility] Last Admin: 07/17/18 09:15 Dose: Not Given Morphine Sulfate (Morphine) 2 mg IVPUSH Q2H PRN PRN Reason: Pain (severe 7-10) Ondansetron HCl (Zofran) 4 mg IV Q4H PRN PRN Reason: Nausea/Vomiting Last Admin: 07/15/18 09:26 Dose: 4 mg Polyethylene Glycol (Miralax) 17 gm PO DAILY PRN PRN Reason: Constipation Senna/Docusate Sodium (Senna Plus) 1 tab PO BID PRN PRN Reason: Constipation Sodium Chloride (Saline Flush) 10 ml FLUSH ASDIRECTED PRN PRN Reason: Keep Vein Open Tramadol HCl (Ultram) 50 mg PO Q6H PRN PRN Reason: Pain Discontinued Medications Diphenhydramine HCl (Benadryl) 25 mg IVPUSH ONETIME ONE Stop: 07/15/18 22:59 Last Admin: 07/15/18 23:09 Dose: 25 mg Diphenhydramine HCl (Benadryl) Confirm Administered Dose 50 mg .ROUTE .STK-MED ONE Stop: 07/15/18 23:06 Last Admin: 07/16/18 02:51 Dose: Not Given Lactated Ringer's (Ringers, Lactated) 1,000 mls @ 500 mls/hr IV ASDIRECTED [facility] Stop: 07/14/18 13:46 Last Admin: 07/14/18 09:52 Dose: 500 mls/hr Lactated Ringer's (Ringers, Lactated) 1,000 mls @ 125 mls/hr IV ASDIRECTED [facility] Last Admin: 07/15/18 06:18 Dose: 125 mls/hr Magnesium Sulfate 2 gm/ Premix 50 mls @ 25 mls/hr IV ONETIME ONE Stop: 07/15/18 10:59 Last Admin: 07/15/18 09:21 Dose: 25 mls/hr Metoclopramide HCl (Reglan) 5 mg IVPUSH ONETIME ONE Stop: 07/14/18 09:08 Last Admin: 07/14/18 09:12 Dose: 5 mg Morphine Sulfate (Morphine) 4 mg IVPUSH Q10M PRN PRN Reason: Chest Pain Stop: 07/15/18 06:55 Last Admin: 07/14/18 07:02 Dose: 4 mg Nitroglycerin (Nitrostat) 0.4 mg SL Q5M PRN PRN Reason: Chest Pain Stop: 07/15/18 06:55 Ondansetron HCl (Zofran) 4 mg IVPUSH ONETIME ONE Stop: 07/14/18 07:12 Last Admin: 07/14/18 07:12 Dose: 4 mg Ondansetron HCl (Zofran) Confirm Administered Dose 4 mg .ROUTE .STK-MED ONE Stop: 07/14/18 07:12 Last Admin: 07/14/18 07:19 Dose: Not Given Potassium Chloride (Potassium Chloride) 40 meq PO ONETIME ONE Stop: 07/14/18 07:59 Last Admin: 07/14/18 08:14 Dose: 40 meq Potassium Chloride (Klor-Con M20) 40 meq PO ONETIME ONE Stop: 07/16/18 09:01 Last Admin: 07/16/18 09:08 Dose: 40 meq Potassium Chloride (Klor-Con M20) 40 meq PO ONETIME ONE Stop: 07/16/18 17:01 Last Admin: 07/16/18 16:55 Dose: 40 meq Sodium Chloride (Saline Flush) 10 ml FLUSH ASDIRECTED PRN PRN Reason: Keep Vein Open Last Admin: 07/14/18 07:13 Dose: 10 ml - Exam General: Reports: Alert, Oriented, Cooperative, No Acute Distress Lungs: Reports: Clear to Auscultation, Normal Respiratory Effort Cardiovascular: Reports: Regular Rate, Regular Rhythm, No Murmurs GI/Abdominal Exam: Soft, Non-Tender, No Organomegaly, No Distention Skin: Reports: Other (Cellulitis of the right lateral hip and thigh has resolved ) *Q Meaningful Use (DIS) - VTE *Q VTE Pharmacological Contraindications *Q: High INR Value
== END 2018-07-17 10:06 | disposition home or self-care (01) | DRG 603 ==
LOC: JP.ED 06:23 → JP.MS 09:38
PROVIDERS: ADMIT Hospitalist; ATTEND Hospitalist
DX: L03.115 Cellulitis of right lower limb (principal); N39.0 Urinary tract infection, site not specified; I10 Essential (primary) hypertension; Z98.890 Other specified postprocedural states; R82.90 Unspecified abnormal findings in urine; R07.9 Chest pain, unspecified; R53.1 Weakness; R11.0 Nausea; Z96.641 Presence of right artificial hip joint; B96.1 Klebsiella pneumoniae [K. pneumoniae] as the cause of diseases classified elsewhere; M19.90 Unspecified osteoarthritis, unspecified site; H54.7 Unspecified visual loss; Z79.01 Long term (current) use of anticoagulants
CPT/HCPCS: 36415; 71045 ×2; 74018 ×2; 80053; 81001; 82553; 84484; 85025; 85379; 85610; 86140; 93005; 96374; 96375; 99285; A9270; J2270; J2405; J2765; J7050; 76881-26-RT; 76881-RT; 80048; 80202; 83605; 83735; 87040; 87086; 87088; 87186; 97110-GP; 97161-GP; 97530-GP; 97535-GP; J1200; J2185; J3370; J3475; J7030; J7120

== ENCOUNTER 2021-01-02 14:53 | Emergency (ER) | payer MEDICARE, BC ==
[2021-01-02] MEDS ORDERED: Ondansetron 4 MG/2 ML SDV IVPUSH ONE (14:59)
[2021-01-02] MEDS ORDERED: Sodium Chloride 0.9% 1,000 ML IV SCH (15:00)
[2021-01-02] MEDS ORDERED: Meclizine 25 MG Tab PO ONE ×2 (15:00→17:02)
--- NOTE | 2021-01-02 15:35 | EDM.PDOC ---
ED HPI GENERAL MEDICAL PROBLEM - General Chief Complaint: Gastrointestinal Problem Stated Complaint: DIZZY,STOMACH PAIN Time Seen by Provider: 01/02/21 15:35 Source of Information: Reports: Patient History Limitations: Reports: No Limitations - History of Present Illness INITIAL COMMENTS - FREE TEXT/NARRATIVE: pt arrived feeling very dizzy--like the room was spinning. She was wretching and vomiting and was very belchy. She did have her covid shot 1 week ago. She had a brief episode similar to this after she had her covid shot. She has not had a inner ear problem in the past. Onset: Today, Sudden Duration: Hour(s): Location: Reports: Head, Abdomen, Generalized Associated Symptoms: Reports: Nausea/Vomiting Abdominal Pain Score (Numeric/FACES): 7 Headache Pain Score (Numeric/FACES): 3 - Related Data Allergies Allergy/AdvReac Type Severity Reaction Status Date / Time No Known Allergies Allergy Verified 01/02/21 15:35 Home Meds: Home Meds Lisinopril/Hydrochlorothiazide [Lisinopril-Hctz 10-12.5 mg Tab] 1 tab PO DAILY 06/07/16 [History] Acetaminophen [Tylenol Extra Strength] 500 mg PO Q4HR PRN 07/14/18 [History] Past Medical History HEENT History: Reports: Impaired Vision Cardiovascular History: Reports: Hypertension 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: Reports: Musculoskeletal History: Reports: Arthritis, Fracture Other Musculoskeletal History: fx ankle fibula Hematologic History: Reports: Anticoagulation Therapy - Infectious Disease History Infectious Disease History: Reports: Chicken Pox, Measles, Mumps - Past Surgical History GI Surgical History: Reports: Cholecystectomy Female Surgical History: Reports: Tubal Ligation Musculoskeletal Surgical History: Reports: Hip Replacement Social & Family History - Caffeine Use Caffeine Use: Reports: Coffee, Soda ED ROS GENERAL - Review of Systems Review Of Systems: See Below Constitutional: Reports: No Symptoms HEENT: Reports: Vertigo, Other (pt suddenly became dizzy this late morning. She then began to vomit and she had reflux and belching. ) Respiratory: Reports: Shortness of Breath Cardiovascular: Reports: No Symptoms Endocrine: Reports: No Symptoms GI/Abdominal: Reports: Abdominal Pain, Other (pt had pain in her upper abdoman. ) : Reports: No Symptoms Musculoskeletal: Reports: No Symptoms Skin: Reports: No Symptoms ED EXAM, GI/ABD - Physical Exam Exam: See Below Text/Narrative:: pt arrived feeling very dixxy and was wretching and vomiting. She was feeling uncomfortable in the abdoman. Exam Limited By: No Limitations General Appearance: Alert, Anxious, Moderate Distress, Other (pt was wretching. ) Ears: Normal TMs Nose: Normal Inspection Throat/Mouth: Normal Inspection Head: Atraumatic Neck: Normal Inspection Respiratory/Chest: No Respiratory Distress Cardiovascular: Regular Rate, Rhythm GI/Abdominal Exam: Other (mild upper abdomanal tenderness) (Female) Exam: Deferred, Other (pt has a history of frequent utis. ) Rectal (Female) Exam: Deferred Back Exam: Normal Inspection Extremities: Normal Inspection Neurological: Alert, Oriented, Other (pt was having vertigo. ) Psychiatric: Anxious Course - Vital Signs Last Recorded V/S: Last Vital Signs Temp 36.6 C 01/02/21 15:24 Pulse 61 01/02/21 15:26 Resp 18 01/02/21 15:24 BP 159/60 H 01/02/21 15:26 Pulse Ox 100 01/02/21 15:26 - Orders/Labs/Meds Orders: Active Orders 24 hr Category Date Time Status EKG Documentation Completion [RC] ASDIRECTED Care 01/02/21 16:10 Active Sodium Chloride 0.9% [Normal Saline] 1,000 ml Med 01/02/21 15:00 Active IV ASDIRECTED EKG 12 Lead [EK] Routine Ther 01/02/21 16:10 Ordered Medication Orders Sodium Chloride (Normal Saline) 1,000 mls @ 999 mls/hr IV ASDIRECTED TEO Last Admin: 01/02/21 15:20 Dose: 999 mls/hr Documented by: PREILOR Labs: Laboratory Tests 01/02/21 01/02/21 01/02/21 Range/Units 15:12 15:12 15:50 WBC 7.1 (4.5-11.0) K/uL RBC 4.48 (3.30-5.50) M/uL Hgb 14.6 D (12.0-15.0) g/dL Hct 42.3 (36.0-48.0) % MCV 94 (80-98) fL MCH 33 H (27-31) pg MCHC 35 (32-36) % Plt Count 263 (150-400) K/uL Neut % (Auto) 75 H (36-66) % Lymph % (Auto) 17 L (24-44) % Bailey % (Auto) 8 H (2-6) % Eos % (Auto) 1 L (2-4) % Baso % (Auto) 0 (0-1) % Sodium 134 L (140-148) mmol/L Potassium 3.1 L (3.6-5.2) mmol/L Chloride 98 L (100-108) mmol/L Carbon Dioxide 24 (21-32) mmol/L Anion Gap 15.1 H (5.0-14.0) mmol/L BUN 13 D (7-18) mg/dL Creatinine 0.8 (0.6-1.0) mg/dL Est Cr Clr Drug Dosing 66.95 mL/min Estimated GFR (MDRD) > 60 (>60) Glucose 117 H (74-106) mg/dL Calcium 9.5 (8.5-10.1) mg/dL Total Bilirubin 0.5 (0.2-1.0) mg/dL AST 21 (15-37) U/L ALT 29 (12-78) U/L Alkaline Phosphatase 63 (46-116) U/L Troponin I (0.000-0.056) ng/mL C-Reactive Protein (0.0-0.3) mg/dL Total Protein 7.0 (6.4-8.2) g/dL Albumin 3.9 (3.4-5.0) g/dL Globulin 3.1 (2.3-3.5) g/dL Albumin/Globulin Ratio 1.3 (1.2-2.2) Amylase (25-115) U/L Lipase 71 L (73-393) U/L Urine Color (YELLOW) Urine Appearance (CLEAR) Urine pH (5.0-8.0) Ur Specific Cascade (1.008-1.030) Urine Protein (NEGATIVE) mg/dL Urine Glucose (UA) (NEGATIVE) mg/dL Urine Ketones (NEGATIVE) mg/dL Urine Occult Blood (NEGATIVE) Urine Nitrite (NEGATIVE) Urine Bilirubin (NEGATIVE) Urine Urobilinogen (0.2-1.0) EU/dL Ur Leukocyte Esterase (NEGATIVE) Urine RBC (0-5) Urine WBC (0-5) Ur Epithelial Cells Amorphous Sediment Urine Bacteria Urine Mucus 01/02/21 01/02/21 01/02/21 Range/Units 15:51 15:57 16:11 WBC (4.5-11.0) K/uL RBC (3.30-5.50) M/uL Hgb (12.0-15.0) g/dL Hct (36.0-48.0) % MCV (80-98) fL MCH (27-31) pg MCHC (32-36) % Plt Count (150-400) K/uL Neut % (Auto) (36-66) % Lymph % (Auto) (24-44) % Bailey % (Auto) (2-6) % Eos % (Auto) (2-4) % Baso % (Auto) (0-1) % Sodium (140-148) mmol/L Potassium (3.6-5.2) mmol/L Chloride (100-108) mmol/L Carbon Dioxide (21-32) mmol/L Anion Gap (5.0-14.0) mmol/L BUN (7-18) mg/dL Creatinine (0.6-1.0) mg/dL Est Cr Clr Drug Dosing mL/min Estimated GFR (MDRD) (>60) Glucose (74-106) mg/dL Calcium (8.5-10.1) mg/dL Total Bilirubin (0.2-1.0) mg/dL AST (15-37) U/L ALT (12-78) U/L Alkaline Phosphatase (46-116) U/L Troponin I < 0.017 (0.000-0.056) ng/mL C-Reactive Protein 0.13 (0.0-0.3) mg/dL Total Protein (6.4-8.2) g/dL Albumin (3.4-5.0) g/dL Globulin (2.3-3.5) g/dL Albumin/Globulin Ratio (1.2-2.2) Amylase 66 (25-115) U/L Lipase (73-393) U/L Urine Color (YELLOW) Urine Appearance (CLEAR) Urine pH (5.0-8.0) Ur Specific Cascade (1.008-1.030) Urine Protein (NEGATIVE) mg/dL Urine Glucose (UA) (NEGATIVE) mg/dL Urine Ketones (NEGATIVE) mg/dL Urine Occult Blood (NEGATIVE) Urine Nitrite (NEGATIVE) Urine Bilirubin (NEGATIVE) Urine Urobilinogen (0.2-1.0) EU/dL Ur Leukocyte Esterase (NEGATIVE) Urine RBC (0-5) Urine WBC (0-5) Ur Epithelial Cells Amorphous Sediment Urine Bacteria Urine Mucus 01/02/21 Range/Units 17:09 WBC (4.5-11.0) K/uL RBC (3.30-5.50) M/uL Hgb (12.0-15.0) g/dL Hct (36.0-48.0) % MCV (80-98) fL MCH (27-31) pg MCHC (32-36) % Plt Count (150-400) K/uL Neut % (Auto) (36-66) % Lymph % (Auto) (24-44) % Bailey % (Auto) (2-6) % Eos % (Auto) (2-4) % Baso % (Auto) (0-1) % Sodium (140-148) mmol/L Potassium (3.6-5.2) mmol/L Chloride (100-108) mmol/L Carbon Dioxide (21-32) mmol/L Anion Gap (5.0-14.0) mmol/L BUN (7-18) mg/dL Creatinine (0.6-1.0) mg/dL Est Cr Clr Drug Dosing mL/min Estimated GFR (MDRD) (>60) Glucose (74-106) mg/dL Calcium (8.5-10.1) mg/dL Total Bilirubin (0.2-1.0) mg/dL AST (15-37) U/L ALT (12-78) U/L Alkaline Phosphatase (46-116) U/L Troponin I (0.000-0.056) ng/mL C-Reactive Protein (0.0-0.3) mg/dL Total Protein (6.4-8.2) g/dL Albumin (3.4-5.0) g/dL Globulin (2.3-3.5) g/dL Albumin/Globulin Ratio (1.2-2.2) Amylase (25-115) U/L Lipase (73-393) U/L Urine Color Yellow (YELLOW) Urine Appearance Slightly cloudy A (CLEAR) Urine pH 7.0 (5.0-8.0) Ur Specific Cascade 1.020 (1.008-1.030) Urine Protein Negative (NEGATIVE) mg/dL Urine Glucose (UA) Negative (NEGATIVE) mg/dL Urine Ketones Negative (NEGATIVE) mg/dL Urine Occult Blood Negative (NEGATIVE) Urine Nitrite Negative (NEGATIVE) Urine Bilirubin Negative (NEGATIVE) Urine Urobilinogen 0.2 (0.2-1.0) EU/dL Ur Leukocyte Esterase Small H (NEGATIVE) Urine RBC 0-5 (0-5) Urine WBC 0-5 (0-5) Ur Epithelial Cells Occasional Amorphous Sediment Rare Urine Bacteria Many Urine Mucus Occasional Meds: Medications Generic Name Dose Route Start Last Admin Trade Name Freq PRN Reason Stop Dose Admin Sodium Chloride 1,000 mls @ 999 mls/hr 01/02/21 15:00 01/02/21 15:20 Normal Saline IV 999 mls/hr ASDIRECTED TEO Administration Discontinued Medications Generic Name Dose Route Start Last Admin Trade Name Freq PRN Reason Stop Dose Admin Hydromorphone HCl 0.5 mg 01/02/21 15:51 01/02/21 16:05 Dilaudid IVPUSH 01/02/21 15:52 0.5 mg ONETIME ONE Administration Meclizine HCl 25 mg 01/02/21 15:00 01/02/21 15:14 Antivert PO 01/02/21 15:01 25 mg ONETIME ONE Administration Meclizine HCl 25 mg 01/02/21 17:02 01/02/21 17:13 Antivert PO 01/02/21 17:03 25 mg ONETIME ONE Administration Ondansetron HCl 4 mg 01/02/21 14:59 01/02/21 15:20 Zofran IVPUSH 01/02/21 15:00 4 mg ONETIME ONE Administration Pantoprazole Sodium 40 mg 01/02/21 15:56 01/02/21 16:04 Protonix Iv IVPUSH 01/02/21 15:57 40 mg ONETIME ONE Administration - Re-Assessments/Exams Free Text/Narrative Re-Assessment/Exam: 01/02/21 17:06 pt was given zoforan 4 mg, antivert x2, dilaudid .5 mg, protonix 40 mg. she was given a liter of fluid. She had a Us which did not show any stones in the common duct. Departure - Departure Time of Disposition: 17:47 Disposition: Home, Self-Care 01 Condition: Fair Clinical Impression: Inner ear dysfunction, Acid reflux - Discharge Information Referrals: PCP,None [Primary Care Provider] - Forms: ED Department Discharge Care Plan Goals: prilosec 20 mg daily for reflux, antivert 25 mg tid for 2 days for dizziness, low activity , rtc if recurrent symptoms. Sepsis Event Note (ED) - Evaluation Sepsis Screening Result: No Definite Risk - Focused Exam Vital Signs: Vital Signs Temp Pulse Resp BP Pulse Ox 01/02/21 15:26 61 159/60 H 100 01/02/21 15:24 36.6 C 70 18 176/67 H 100 01/02/21 15:01 36.6 C 70 18 176/67 H 100 - My Orders Last 24 Hours: My Active Orders 01/02/21 15:00 Sodium Chloride 0.9% [Normal Saline] 1,000 ml IV ASDIRECTED 01/02/21 16:10 EKG Documentation Completion [RC] ASDIRECTED EKG 12 Lead [EK] Routine - Assessment/Plan Last 24 Hours: My Active Orders 01/02/21 15:00 Sodium Chloride 0.9% [Normal Saline] 1,000 ml IV ASDIRECTED 01/02/21 16:10 EKG Documentation Completion [RC] ASDIRECTED EKG 12 Lead [EK] Routine
[2021-01-02] MEDS ORDERED: HYDROmorphone 0.5 MG/0.5 ML Syringe IVPUSH ONE (15:51)
[2021-01-02] MEDS ORDERED: Pantoprazole 40 MG Vial IVPUSH ONE (15:56)
--- NOTE | 2021-01-02 17:14 | CRLUS ---
INDICATION: Upper abdominal pain, belching TECHNIQUE: Ultrasound abdomen limited. Sonographic images of the right upper quadrant were obtained using shen-scale and color Doppler images. COMPARISON: None FINDINGS: Moderate degradation of image quality noted due to body habitus. Liver: The liver parenchyma is normal in echotexture. Gallbladder: Previous cholecystectomy noted without significant intra- or extrahepatic biliary ductal dilatation seen. No sonographic [place] sign is present. Common bile duct: 4 mm. Pancreas: The visualized portions of the pancreatic head and body are normal in appearance. Right Kidney: 10.5 cm. There is an anechoic structure within the right renal sinus which may represent [id number] renal pelviectasis. Vascular: The visualized abdominal aorta and IVC are unremarkable. The visualized portal vein is patent with normal anterograde flow. IMPRESSION: 1. There is an anechoic structure within the right renal sinus which may represent [id number] renal pelviectasis. Dictated by Tevin Irwin MD @ 01/02/2021 5:12:24 PM Dictated by: Tevin Irwin MD @ 01/02/2021 17:12:27 (Electronically Signed)
[2021-01-02 17:52] VITALS: BP 162/60; PULSE 54
== END 2021-01-02 18:09 | disposition home or self-care (01) ==
LOC: JP.ED 14:53
DX: H83.2X9 Labyrinthine dysfunction, unspecified ear (principal); K21.9 Gastro-esophageal reflux disease without esophagitis; I10 Essential (primary) hypertension; Z87.440 Personal history of urinary (tract) infections; Z79.899 Other long term (current) drug therapy; Z79.01 Long term (current) use of anticoagulants
CPT/HCPCS: 36415; 76705; 80053; 81001; 82150; 83690; 84484; 85025; 86140; 93005; 96374; 96375; 99284; A9270; C9113; J1170; J2405; J7030